=== PATIENT | male | born 1970 | race Caucasian/White ===

== ENCOUNTER 2017-06-05 12:02 | Emergency (ER) | payer BC ==
[~2017-06-05] VITALS: Ht 172.7 cm; Wt 77.1 kg
--- NOTE | ~2017-06-05 | CR58 ---
[facility] A Service of [facility] RADIOLOGY TEXT RESULTS PATIENT: MARGARITA VELÁSQUEZ LOCATION: [facility] : 74 UNIT #: [id number] AGE: [address]: Ana Cristina Bridges APRN SEX: M ORDER DR: [id number] [facility] [address] [place], [place] [address] [id number] E MR#: [id number] Acc #: [id number] NAME: MARGARITA VELÁSQUEZ. : 1970 SEX: M STUDY DATE/TIME: 06/05/2017 14:05 UNIT: [facility] ROOM: STUDY DESCRIPTION: CR Cervical Spine 2 or 3 Views Attending Physician: Ana Cristina Bridges A.P.R.N. Ordering Physician: Ed Marky Macedo M.D. Primary Care Physician: No Primary Care Physician MEDICAL IMAGING REPORT This report is preliminary unless electronic signature is present EXAM Cervical spine series HISTORY Pain. Fell down stairs. Shoulder pain, numbness in hand and fingers. Symptoms began 10 days ago. FINDINGS AP, lateral, and open mouth odontoid views of the cervical spine are presented. Alignment within normal limits. Vertebral body heights normal. Moderate disc space narrowing C5-C6 and C6-C7. Facet joint relationships normal. C1-C2 relationship is normal. Odontoid process appears intact. Prevertebral soft tissues unremarkable. The lung apices are clear. Paraspinal soft tissues unremarkable. Anterior osteophyte formations C5-C6 and C6-C7, with suggestion of posterior osteophyte formations at these levels, as well. If it would assist in management, spinal canal and neural foraminal contents could best be further evaluated with elective MRI, if patient is candidate, or CT examination. Study not tailored for assessment of the teeth. There is a suggestion of abnormal lucency in several teeth that may reflect dental caries. Correlate with dental examination. Dictated by... Alfonzo Faria M.D. THIS IS AN ELECTRONICALLY VERIFIED REPORT [facility] A Service of [facility] RADIOLOGY TEXT RESULTS PATIENT: MARGARITA VELÁSQUEZ LOCATION: [facility] : 74 UNIT #: [id number] AGE: [address]: Ana Cristina Bridges APRN SEX: M ORDER DR: Alfonzo Faria M.D. at 06/08/2017 12:58 PM KING/yesenia TD: 06/06/2017 11:39 JOB #: [id number] MEDICAL IMAGING REPORT Page 1 of 1 COPY
--- NOTE | ~2017-06-05 | CR230 ---
[facility] A Service of [facility] RADIOLOGY TEXT RESULTS PATIENT: MARGARITA VELÁSQUEZ LOCATION: [facility] : 74 UNIT #: [id number] AGE: [address]: Ana Cristina Bridges APRN SEX: M ORDER DR: [id number] [facility] [address] [place], [place] [address] [id number] E MR#: [id number] Acc #: [id number] NAME: MARGARITA VELÁSQUEZ. : 1970 SEX: M STUDY DATE/TIME: 06/05/2017 14:12 UNIT: [facility] ROOM: STUDY DESCRIPTION: CR Shoulder Min 2 View Rt Attending Physician: Ana Cristina Bridges A.P.R.N. Ordering Physician: Ed Marky Macedo M.D. Primary Care Physician: No Primary Care Physician MEDICAL IMAGING REPORT This report is preliminary unless electronic signature is present EXAM Right shoulder series 06/05/2017. HISTORY Pain. Recent fall on stairs. Fell down stairs 10 days ago. Numbness in right hand and fingers. Upper back pain, right shoulder pain. FINDINGS AP internal and external rotation views of the right shoulder presented with transscapular view. No traumatic fracture or malalignment. Acromioclavicular and glenohumeral joint relationships are normal. The periarticular soft tissues are unremarkable. The visualized ribs are intact. Visualized pulmonary parenchyma clear. Dictated by... Alfonzo Faria M.D. THIS IS AN ELECTRONICALLY VERIFIED REPORT Alfonzo Faria M.D. at 06/08/2017 12:58 PM KING/yesenia TD: 06/06/2017 11:48 JOB #: [id number] MEDICAL IMAGING REPORT Page 1 of 1 COPY
--- NOTE | ~2017-06-05 | CR243 ---
[facility] A Service of [facility] & [facility] RADIOLOGY TEXT RESULTS PATIENT: MARGARITA VELÁSQUEZ LOCATION: [facility] : 74 UNIT #: [id number] AGE: [address]: Ana Cristina Bridges APRN SEX: M ORDER DR: [id number] [facility] [address] [place], [place] [address] [id number] E MR#: [id number] Acc #: [id number] NAME: MARGARITA VELÁSQUEZ. : 1970 SEX: M STUDY DATE/TIME: 06/05/2017 14:16 UNIT: [facility] ROOM: STUDY DESCRIPTION: CR Thoracic Spine 3 Views Attending Physician: Ana Cristina Bridges A.P.R.N. Ordering Physician: Ed Marky Macedo M.D. Primary Care Physician: No Primary Care Physician MEDICAL IMAGING REPORT This report is preliminary unless electronic signature is present EXAM Thoracic spine, 3 views COMPARISON None. INDICATION 46-year-old male with upper back pain since falling down the stairs 10 days ago. FINDINGS Multilevel anterior osteophyte formation of the thoracic vertebral bodies as well as the cervical vertebral bodies. The thoracic spine is anatomically aligned. No evidence of an acute fracture. IMPRESSION No evidence of acute fracture or subluxation of the thoracic spine. Dictated by... Pradeep Thomas M.D. THIS IS AN ELECTRONICALLY VERIFIED REPORT Pradeep Thomas M.D. at 06/07/2017 9:08 AM EULA/rebekah TD: 06/06/2017 11:22 JOB #: [id number] MEDICAL IMAGING REPORT Page 1 of 1 COPY
== END 2017-06-05 15:32 | disposition home or self-care (01) ==
LOC: CED 12:02 → CFTX 12:02
DX: S46.911A Strain of unspecified muscle, fascia and tendon at shoulder and upper arm level, right arm, initial encounter (principal); M54.2 Cervicalgia; M54.6 Pain in thoracic spine; R03.0 Elevated blood-pressure reading, without diagnosis of hypertension; F17.200 Nicotine dependence, unspecified, uncomplicated; W01.0XXA Fall on same level from slipping, tripping and stumbling without subsequent striking against object, initial encounter; Y92.9 Unspecified place or not applicable
CPT/HCPCS: 72040; 72072; 73030; 96372; 99283; J1885